=== PATIENT | female | born 2000 | race Caucasian/White ===

== ENCOUNTER 2022-07-10 09:22 | Outpatient (CLI) | payer OTHER, SELFPAY ==
[2022-07-10 14:59] LABS: Chloride* 103 mmol/L (96-114)
[2022-07-10 15:00] LABS: Potassium* 3.9 mmol/L (3.6-5.1); Sodium* 139 mmol/L (135-149)
[2022-07-10 15:02] LABS: Creatine Kinase* 46 U/L (41-117); Creatinine* 0.5 mg/dL (0.5-1.5); Estimated Glomerular Filt Rate 138 ml/min
[2022-07-10 15:03] LABS: Blood Urea Nitrogen* 24 mg/dL (5-24); Calcium* 9.5 mg/dL (8.4-10.6); Carbon Dioxide* 25 mmol/L (20-32); Glucose* 92 mg/dL (60-115)
[2022-07-10 15:06] LABS: C Reactive Protein* 2.1 mg/dL (0.5-1.0)
[2022-07-11 10:32] LABS: Basophils Absolute Auto 0.07 K/uL (0.00-0.30); Basophils Percent Auto 0.9 % (0.0-3.0); Eosinophils Absolute Auto 0.19 K/uL (0.00-0.50); Eosinophils Percent Auto 2.4 % (0.0-7.0); Hematocrit 42.7 % (33.0-51.0); Hemoglobin* 13.8 gm/dL (12.0-16.0); Immature Granulocytes Abs Auto 0.08 K/uL (0.00-0.30); Lymphocytes Absolute Auto 2.62 K/uL (0.90-2.90); Lymphocytes Percent Auto 33.3 % (20-44); Mean Corpuscular HGB Conc 32 gm/dL (32-36); Mean Corpuscular Hemoglobin 28 pg (26-34); Mean Corpuscular Volume 86 fL (80-100); Neutrophils Absolute Auto 4.19 K/uL (1.7-7.0); Neutrophils Percent Auto 53.4 % (42.0-72.0); Platelet Count* 228 K/uL (140-440); RDW Coefficient of Variation % 12.8 % (11.5-15.5); Red Blood Count 4.98 m/uL (4.00-5.20); White Blood Count* 7.86 K/uL (4.50-11.00)
[2022-07-11 10:34] LABS: Slide Review Reflex No
[2022-07-11 11:41] LABS: Rheumatoid Factor < 10 IU/mL (0-14)
[2022-07-12 01:02] LABS: Anti-Nuclear Ab(ANA)IgG ELISA None Detected (None Detected)
== END 2022-07-10 09:23 | disposition home or self-care (01) ==
PROVIDERS: PCP Family Medicine; Visit Provider Family Medicine
DX: Z00.00 Encounter for general adult medical examination without abnormal findings (principal); M25.50 Pain in unspecified joint; M54.9 Dorsalgia, unspecified; E03.9 Hypothyroidism, unspecified; M54.50 Low back pain, unspecified
CPT/HCPCS: 80048; 82550; 84443; 85025; 86039; 86140; 86431